=== PATIENT | female | born 2000 | race American Indian/Alaskan Native ===

== ENCOUNTER 2019-02-21 00:07 | Emergency (ER) | payer SELFPAY ==
--- NOTE | 2019-02-21 00:48 | Emergency Department Report ---
ED Syncope HPI - General Chief Complaint: Syncope Stated Complaint: PASSED OUT Time Seen by Provider: 02/21/19 00:44 Source: patient, family Exam Limitations: no limitations - History of Present Illness Initial Comments: Patient is a 18-year-old female that presents emergency room with complaints of a syncopal episode times one today. Patient states while she was at work tonig ht the patient became lightheaded and had blurred vision and then passed out. Patient states her loss of consciousness was brief. Patient denies headache. Patient denies any symptoms at this time. Patient states after she came to she was asymptomatic. Patient states her last menstrual period was 01/31/2019 and she has an explant for control. Patient states lately her period has been heavy. Patient states that she has a history of anemia. Patient states she has occasional alcohol use. Patient states she smokes marijuana on occasion. Patient states the last time she smoked marijuana was this morning. Timing/Prior Episodes: no prior history, single episode today Precipitating Factors: Positive: blurred vision, lightheadedness Context: standing Loss of Consciousness: brief (seconds) Current Symptoms: back to normal. denies: blurred vision, chest pain, diaphoresis, dizziness, headache, injury, lightheadedness, loss of bladder control, loss of bowel control, motionless, nausea, pale, shallow/rapid breathing, weak/absent pulse, weakness - Related Data Home Medications: Ambulatory Orders 21/Iron Fu/Folic Acid [ Complete Caplet] 1 each PO DAILY #30 tablet 02/21/19 ED Review of Systems ROS: Stated complaint: PASSED OUT Other details as noted in HPI Constitutional: denies: chills, fever Eyes: denies: eye pain, eye discharge, vision change ENT: denies: ear pain, throat pain Respiratory: denies: cough, shortness of breath, wheezing Cardiovascular: denies: chest pain, palpitations Endocrine: no symptoms reported Gastrointestinal: denies: abdominal pain, nausea, diarrhea Genitourinary: denies: urgency, dysuria, discharge Musculoskeletal: denies: back pain, joint swelling, arthralgia Skin: denies: rash, lesions Neurological: denies: headache, weakness, paresthesias Psychiatric: denies: anxiety, depression Hematological/Lymphatic: denies: easy bleeding, easy bruising ED Past Medical Hx - Past Medical History Previous Medical History?: Yes Additional medical history: anemia - Surgical History Past Surgical History?: No - Family History Family history: no significant - Social History Smoking Status: Never Smoker Substance Use Type: Alcohol, Marijuana - Medications Home Medications: Home Medications Medication Instructions Recorded Confirmed Last Taken Type 21/Iron Fu/Folic Acid 1 each PO DAILY #30 tablet 02/21/19 Unknown Rx [ Complete Caplet] ED Physical Exam - General Limitations: No Limitations General appearance: alert, in no apparent distress - Head Head exam: Present: atraumatic, normocephalic - Eye Eye exam: Present: normal appearance, PERRL Pupils: Present: normal accommodation - ENT ENT exam: Present: mucous membranes moist - Neck Neck exam: Present: normal inspection - Respiratory Respiratory exam: Present: normal lung sounds bilaterally. Absent: respiratory distress, wheezes, rales - Cardiovascular Cardiovascular Exam: Present: regular rate, normal rhythm. Absent: systolic murmur, diastolic murmur, rubs, gallop - GI/Abdominal GI/Abdominal exam: Present: soft, normal bowel sounds. Absent: distended, tenderness, guarding - Rectal Rectal exam: Present: deferred - Extremities Exam Extremities exam: Present: normal inspection - Back Exam Back exam: Present: normal inspection - Neurological Exam Neurological exam: Present: alert, oriented X3 - Psychiatric Psychiatric exam: Present: normal affect, normal mood - Skin Skin exam: Present: warm, dry, intact, normal color. Absent: rash ED Course - Reevaluation(s) Reevaluation #1: I discussed all results and clinical findings with patient. Patient stable for discharge the patient will be discharged home. I discussed plan of care with patient the patient agrees with plan. Patient given discharge instructions. Patient voiced understanding of discharge instructions. 02/21/19 02:12 ED Medical Decision Making - Lab Data Result diagrams: 02/21/19 00:56 02/21/19 00:56 - Medical Decision Making pt is a 18-year-old female that presents to the emergency room with complaints of syncope. Patient's labs unremarkable. Patient stable for discharge. Patient's syncope most likely secondary to dehydration and heavy menses. Patient referred back to her [facility]NAGER for management of her heavy periods. - Differential Diagnosis syncope, anemia. dehydration. uti, heavy menses. Critical care attestation.: If time is entered above; I have spent that time in minutes in the direct care of this critically ill patient, excluding procedure time. ED Disposition Clinical Impression: Dehydration Syncope Qualifiers: Syncope type: unspecified Qualified Code(s): R55 - Syncope and collapse Heavy menses Qualifiers: Menorrahagia type: with regular cycle Qualified Code(s): N92.0 - Excessive and frequent menstruation with regular cycle Disposition: TO HOME OR SELFCARE Is pt being admited?: No Does the pt Need Aspirin: No Condition: Stable Instructions: Syncope (ED), Menorrhagia (ED) Additional Instructions: Patient to follow up with primary care in 2-3 days. Patient to follow-up with [facility]ATOR in 2-3 days. Patient to return to ER if condition worsens. Patient is a vitamin. Patient to rest. Patient to increase water. Patient to avoid strenuous exercise or work until cleared by primary care. Prescriptions: 21/Iron Fu/Folic Acid [ Complete Caplet] 1 each PO DAILY #30 tablet Referrals: PRIMARY MD DIYA [Primary Care Provider] - 2-3 Days OFELIA ORTIZ MD [Staff Physician] - 2-3 Days Time of Disposition: 02:15
[2019-02-21 01:09] LABS: Hematocrit 39.7 % (30.3-42.9); Hemoglobin 12.9 gm/dl (10.1-14.3); Mean Corpuscular HGB Conc 33 % (30-34); Mean Corpuscular Volume 95 fl (79-97); Platelet Count 306 K/mm3 (140-440); Red Blood Count 4.19 M/mm3 (3.65-5.03); Red Cell Distribution Width 14.2 % (13.2-15.2)
[2019-02-21 01:36] LABS: Alanine Aminotransferase 12 units/L (7-56); BUN/Creatinine Ratio 17; Blood Urea Nitrogen 10 mg/dL (7-17); Calcium 9.3 mg/dL (8.4-10.2); Hemolysis Index 12
[2019-02-21 02:12] LABS: Bacteria,Urine 1+ /HPF (Negative); Bilirubin,Urine NEG (Negative); Blood,Urine NEG (Negative); Color,Urine Yellow (Yellow); Mucus,Urine 2+ /HPF; Protein,Urine <15 mg/dL mg/dL (Negative)
[2019-02-21 02:13] LABS: HCG Qualitative,Urine Negative (Negative)
== END 2019-02-21 02:33 | disposition home or self-care (01) ==
LOC: ED 00:07
DX: E86.0 Dehydration (principal); R55 Syncope and collapse; N92.0 Excessive and frequent menstruation with regular cycle; D64.9 Anemia, unspecified; F10.10 Alcohol abuse, uncomplicated; F12.10 Cannabis abuse, uncomplicated; Z79.899 Other long term (current) drug therapy
CPT/HCPCS: 36415; 80053; 81001; 81025; 85027

== ENCOUNTER 2021-10-15 18:23 | Emergency (ER) | payer SELFPAY | END 2021-10-15 22:59 | disposition left against medical advice (07) | LOC: ED 18:23 | DX: Z20.822 Contact with and (suspected) exposure to COVID-19 (principal); Z53.21 Procedure and treatment not carried out due to patient leaving prior to being seen by health care provider ==